=== PATIENT | female | born 1960 | race Caucasian/White ===

== ENCOUNTER → 2020-09-23 | Day surgery (SDC) | payer OTHER ==
[~2020-09-23] MED LIST: Glycopyrrolate 0.2 MG/ML SDV ONE; Lactated Ringers 1,000 ML IV SCH; Lidocaine 1%/Sod Bicarbonate in NS 8.4% 1 ML Syringe IDERM PRN; Lidocaine 2% 100 MG/5 ML Syringe ONE; Ondansetron 4 MG/2 ML SDV IVPUSH PRN; Propofol 200 MG/20 ML SDV ONE; Sodium Chloride 0.9% 10 ML Syringe FLUSH PRN; fentaNYL 100 MCG/2 ML SDV ONE
--- NOTE | 2020-09-23 10:08 | PCM.PREANE ---
Preanesthetic Assessment - Procedure Proposed Procedure: Diagnostic EGD - Anesthesia/Transfusion/Family Hx Anesthesia History: Prior Anesthesia Without Reaction Family History of Anesthesia Reaction: No Type of Transfusion Reactions: Reports: Unknown - Review of Systems General: No Symptoms Pulmonary: No Symptoms (Snoring, has a sleep study scheduled in a couple weeks. ) Cardiovascular: No Symptoms (Chest pain related to GERD. ) Gastrointestinal: Other (GERD, taking omeprazole and will still need tums to manage symptoms.) Neurological: No Symptoms Other: Reports: None (Insomnia) - Physical Assessment NPO Status Date: 09/22/20 NPO Status Time: 21:30 Weight: 70.4 kg ASA Class: 2 Mental Status: Alert & Oriented x3 Airway Class: Mallampati = 2 Dentition: Reports: [place](s) Thyro-Mental Finger Breadths: 2 Mouth Opening Finger Breadths: 3 ROM/Head Extension: Full Lungs: Clear to Auscultation, Normal Respiratory Effort Cardiovascular: Regular Rate, Regular Rhythm - Imaging/EKG Impressions: Sinus Umair at 59 bpm - Allergies Allergies/Adverse Reactions: Allergies Allergy/AdvReac Type Severity Reaction Status Date / Time No Known Allergies Allergy Verified 09/22/20 10:29 - Acknowledgements Anesthesia Type Planned: MAC Pt an Appropriate Candidate for the Planned Anesthesia: Yes Alternatives and Risks of Anesthesia Discussed w Pt/Guardian: Yes Pt/Guardian Understands and Agrees with Anesthesia Plan: Yes PreAnesthesia Questionnaire HEENT History: Reports: Hard of Hearing, Other (See Below) Other HEENT History: bilateral hearing aids Cardiovascular History: Reports: Angina Gastrointestinal History: Reports: GERD Genitourinary History: Reports: Retention, Urinary Other Genitourinary History: cystocele [employer] REPRESENTATIVE History: Reports: Spontaneous Musculoskeletal History: Reports: Arthritis Other Musculoskeletal History: trochanteric brusitis Other Endocrine/Metabolic History: abnormal TSH Dermatologic History: Reports: Eczema - Past Surgical History GI Surgical History: Reports: Cholecystectomy Other GI Surgeries/Procedures: unsure if shes had her gallbladder removed - SUBSTANCE USE Tobacco Use Status *Q: Former Tobacco User Tobacco Use Within Last Twelve Months: Cigarettes Recreational Drug Use History: No - HOME MEDS Home Medications: Home Meds Multivitamin [Multivitamins] 1 tab PO DAILY 03/22/15 [History] Omeprazole 20 mg PO DAILY 03/22/15 [History] Melatonin 5 mg PO DAILY 09/22/20 [History] - CURRENT (IN HOUSE) MEDS Current Meds: Current Medications Lactated Ringer's (Ringers, Lactated) 1,000 mls @ 125 mls/hr IV ASDIRECTED LYUBOV Stop: 09/23/20 23:00 Lidocaine/Sodium Bicarbonate (Lidocaine 1%/Sod Bicarbonate In Ns 8.4% 1 Ml Syringe) 0.25 ml IDERM ONETIME PRN PRN Reason: Prior to IV Start Stop: 09/23/20 18:00 Sodium Chloride (Sodium Chloride 0.9% 10 Ml Syringe) 10 ml FLUSH ASDIRECTED PRN PRN Reason: Keep Vein Open Stop: 09/23/20 18:00 Discontinued Medications Fentanyl (Fentanyl 100 Mcg/2 Ml Sdv) Confirm Administered Dose 100 mcg .ROUTE .STK-MED ONE Stop: 09/23/20 07:08 Lidocaine HCl (Lidocaine 2% 100 Mg/5 Ml Syringe) Confirm Administered Dose 200 mg .ROUTE .STK-MED ONE Stop: 09/23/20 07:08 Propofol (Propofol 200 Mg/20 Ml Sdv) Confirm Administered Dose 200 mg .ROUTE .STK-MED ONE Stop: 09/23/20 07:08
--- NOTE | 2020-09-23 11:33 | PCM.PRNOTE ---
- Free Text/Narrative Note: Date: 09/22/2020 Procedure: diagnostic esophagogastroduodenoscopy Indication: medically refractory reflux symptom including dry cough Endoscopist: Tl Arana MD Findings: small sliding hiatal hernia Detailed Report: The patient was taken to the endoscopy suite and placed in left lateral decubitus position. Timeout was performed, and a bite-block was placed. Monitored anesthesia care was initiated. The endoscope was inserted in the mouth and advanced to the duodenum. Duodenal mucosa appeared normal. A sample biopsy from the second portion was obtained with cold forceps. The scope was then withdrawn into the stomach. The gastric antrum appeared normal. A biopsy of gastric antral mucosa was obtained. The incisura appeared normal. On retroflexion, there was a hiatal hernia noted. The scope was withdrawn into the distal esophagus. The Z-line appeared normal. Several biopsies around the gastroesophageal junction and distal esophagus were obtained with cold forceps. The remainder of the esophagus appeared normal. The larynx and vocal cords were visualized and appeared normal. There was suctioned from the stomach prior to complete withdrawal of the scope. The patient tolerated the procedure well.
--- NOTE | 2020-09-23 11:38 | PCM48HPAN ---
Post Anesthesia Note - EVALUATION WITHIN 48HRS OF ANESTHETIC Vital Signs in Normal Range: Yes Patient Participated in Evaluation: Yes Respiratory Function Stable: Yes Airway Patent: Yes Cardiovascular Function Stable: Yes Hydration Status Stable: Yes Pain Control Satisfactory: Yes Nausea and Vomiting Control Satisfactory: Yes Mental Status Recovered: Yes
[2020-09-23 13:02] VITALS: BP 147/98; PULSE 57
== END | disposition home or self-care (01) ==
LOC: JD.SDS 09:10
PROVIDERS: ATTEND Surgery
DX: K21.9 Gastro-esophageal reflux disease without esophagitis (principal); R05 Cough; K44.9 Diaphragmatic hernia without obstruction or gangrene; G47.00 Insomnia, unspecified; Z79.899 Other long term (current) drug therapy; Z87.891 Personal history of nicotine dependence
CPT/HCPCS: 43239; J2704; J3010; J3490; J7120; 00731